=== PATIENT | female | born 1980 | race Caucasian/White ===

== ENCOUNTER 2017-02-08 08:36 | Emergency (ER) | payer MEDICAID, OTHER ==
[~2017-02-08] VITALS: Ht 172.7 cm; Wt 141.0 kg
[~2017-02-08 08:36] MED LIST: IBUP600T26 PO
[2017-02-08 08:37] VITALS: BP 143/79; PULSE 92; RESP 20; TEMP 98.1; O2SAT 97
[2017-02-08 09:03] VITALS: BP 145/83; PULSE 89; RESP 16; TEMP 98.1; O2SAT 95
[2017-02-08] MEDS ORDERED: SODIUM CHLOR 0.9% 1000 ML INJ 1,000 ML IV ONE ×2 (09:04→14:15)
[2017-02-08] MEDS ORDERED: METOCLOPRAMIDE HCL 10 MG/2 ML VIAL IVP ONE (09:15)
[2017-02-08] MEDS ORDERED: SODIUM CHLORIDE 0.9% FLUSH 10 ML FLUSH IVF PRN (09:15)
[2017-02-08] MEDS ORDERED: diphenhydrAMINE HCL 50 MG/ML VIAL IVP ONE (09:15)
[2017-02-08] MEDS ORDERED: DIAZEPAM 5 MG TAB PO ONE (09:15)
[2017-02-08] MEDS ORDERED: DEXAMETHASONE SOD PHOS 20 MG/5 ML VIAL IV PUSH ONE (09:15)
[2017-02-08 09:33] LABS: AUTOMATED NEUTROPHIL # 5.3 TH/MM3 (1.8-7.7); BASOPHIL % 0.6 % (0.0-2.0); EOSINOPHIL # 0.2 TH/MM3 (0-0.4); HEMATOCRIT 34.3 % (35.0-46.0); LYMPHOCYTE # 2.3 TH/MM3 (1.0-4.8); MEAN CELL VOLUME 70.9 FL (80.0-100.0); MEAN CORPUSCULAR HGB CONC 32.4 % (32.0-36.0); MONO % 6.1 % (0.0-8.0); NEUT % 63.3 % (16.0-70.0); PLATELET COUNT 377 TH/MM3 (150-450); RED BLOOD COUNT 4.84 MIL/MM3 (4.00-5.30); RED CELL DISTRIBUTION WIDTH 16.2 % (11.6-17.2); WHITE BLOOD COUNT 8.3 TH/MM3 (4.0-11.0)
[2017-02-08 09:35] LABS: HEMO FLAGS AUTO DIFF
[2017-02-08 09:41] LABS: APTT (PATIENT) 29.2 SEC (24.3-30.1); PROTHROMBIN TIME - PATIENT 10.9 SEC (9.8-11.6)
[2017-02-08 09:49] LABS: ANION GAP 6 MEQ/L (5-15); AST (GOT) 54 U/L (15-37); BICARBONATE 26.7 MEQ/L (21.0-32.0); BLOOD UREA NITROGEN 16 MG/DL (7-18); CHLORIDE 103 MEQ/L (98-107); GLOMERULAR FILTRATION RATE 78 ML/MIN (>89); POTASSIUM 4.5 MEQ/L (3.5-5.1); SODIUM (NA) 136 MEQ/L (136-145)
[2017-02-08 09:52] LABS: ALKALINE PHOSPHATASE 124 U/L (45-117); ALT (GPT) 45 U/L (10-53); TOTAL BILIRUBIN ADULT 0.3 MG/DL (0.2-1.0)
[2017-02-08 10:09] LABS: OVALOCYTES 1+ (NORMAL); SCAN/DIFF AUTO DIFF CONFIRMED
--- NOTE | 2017-02-08 11:01 | RADRPT ---
EXAM DATE/TIME: 02/08/2017 10:55 [facility] COMPARISON: No previous studies available for comparison. INDICATIONS : Cephalgia. RADIATION DOSE: 36.58 CTDIvol (mGy) MEDICAL HISTORY : None SURGICAL HISTORY : Tubal ligation. ENCOUNTER: Initial ACUITY: 2 weeks PAIN SCALE: 5/10 LOCATION: cranial TECHNIQUE: Multiple contiguous axial images were obtained of the head. Using automated exposure control and adj ustment of the mA and/or kV according to patient size, radiation dose was kept as low as reasonably a chievable to obtain optimal diagnostic quality images. FINDINGS: CEREBRUM: The ventricles are normal for age. No evidence of midline shift, mass lesion, hemorrhage or acute in farction. No extra-axial fluid collections are seen. POSTERIOR FOSSA: The cerebellum and brainstem are intact. The 4th ventricle is midline. The cerebellopontine angle i s unremarkable. EXTRACRANIAL: The visualized portion of the orbits is intact. SKULL: The calvaria is intact. No evidence of skull fracture. CONCLUSION: Unremarkable noncontrast CT. Darin Tapia MD on February 08, 2017 at 10:59 Board Certified Radiologist. This report was verified electronically.
[2017-02-08] MEDS ORDERED: KETOROLAC TROMETHAMINE 30 MG/ML (IVP) VIAL IV PUSH ONE (11:30)
[2017-02-08] MEDS: MAGNESIUM SULFATE 1 GM PREMIX 100 ML IV SCH ×2 (11:32→12:32)
[2017-02-08 13:32] VITALS: BP 123/65; PULSE 82; RESP 19; O2SAT 96
--- NOTE | 2017-02-08 14:28 | PD ---
HPI Chief Complaint: Headache Time Seen by Provider: 08:55 Travel History International Travel<30 days: No Contact w/Intl Traveler<30days: No Traveled to known affect area: No History of Present Illness HPI Patient is a 36-year-old female who presents to emergency room with complaints of headaches and neck pain. Patient reports that she has had a headache for the past few days. Patient reports that her headache came on abruptly a few days ago is posterior nature, reports that they, her headache radiating down to her neck. Patient reports that she feels nauseous with her symptoms. Patient did try taking ibuprofen with no relief of symptoms. Patient reports no vision changes, denies any trauma to the head or neck. She reports no fevers or chills , denies any recent surgeries or seizures. COUNT INCLUDES THE [facility] Past Medical History Diabetes: Yes (GESTATIONAL) Diminished Hearing: No Headaches: Yes Immunizations Current: No Tetanus Vaccination: > 5 Years Influenza Vaccination: No ?: Not LMP: 01/09/17 : 5 Para: 3 Miscarriage: 1 : 1 Tubal Ligation: Yes Past Surgical History Abdominal Surgery: Yes (Brenda) Section: Yes (X 2) Cholecystectomy: Yes Gynecologic Surgery: Yes () Social History Alcohol Use: No Tobacco Use: No Substance Use: No Allergies-Medications (Allergen,Severity, Reaction): Coded Allergies: No Known Allergies (Verified , 07/24/16) Reported Meds & Prescriptions Reported Meds & Active Scripts Active No Active Prescriptions or Reported Medications Review of Systems General / Constitutional: No: Fever Eyes: No: Visual changes HENT: Positive: Headaches, Neck Pain, No: Neck Stiffness Cardiovascular: No: Chest Pain or Discomfort Respiratory: No: Shortness of Breath Gastrointestinal: Positive: Nausea, No: Abdominal Pain Genitourinary: No: Dysuria Musculoskeletal: No: Pain Skin: No Rash Neurologic: No: Weakness Psychiatric: No: Depression Endocrine: No: Polydipsia Hematologic/Lymphatic: No: Easy Bruising Physical Exam Narrative GENERAL: nad, nontoxic SKIN: Focused skin assessment warm/dry. HEAD: Atraumatic. Normocephalic. EYES: Pupils equal and round. No scleral icterus. No injection or drainage. ENT: No nasal bleeding or discharge. Mucous membranes pink and moist. NECK: Trachea midline. No JVD. CARDIOVASCULAR: Regular rate and rhythm. No murmur appreciated. RESPIRATORY: No accessory muscle use. Clear to auscultation. Breath sounds equal bilaterally. GASTROINTESTINAL: Abdomen soft, non-tender, nondistended. Hepatic and splenic margins not palpable. MUSCULOSKELETAL: No obvious deformities. No clubbing. No cyanosis. No edema. NEUROLOGICAL: Awake and alert. No obvious cranial nerve deficits. Motor grossly within normal limits. Normal speech. PSYCHIATRIC: Appropriate mood and affect; insight and judgment normal. Data Data Last Documented VS Vital Signs Date Time Temp Pulse Resp B/P Pulse Ox O2 Delivery O2 Flow Rate FiO2 02/08/17 13:32 82 19 123/65 96 02/08/17 09:03 98.1 02/08/17 08:37 Room Air Orders Complete Blood Count With Diff (02/08/17 09:04) Comprehensive Metabolic Panel (02/08/17 09:04) Prothrombin Time / Inr (Pt) (02/08/17 09:04) Act Partial Throm Time (Ptt) (02/08/17 09:04) Ct Brain W/O Iv Contrast(Rout) (02/08/17 09:04) Ecg Monitoring (02/08/17 09:04) Iv Access Insert/Monitor (02/08/17 09:04) Oximetry (02/08/17 09:04) Sodium Chloride 0.9% Flush (Ns Flush) (02/08/17 09:15) Diphenhydramine Inj (Benadryl Inj) (02/08/17 09:15) Metoclopramide Inj (Reglan Inj) (02/08/17 09:15) Sodium Chlor 0.9% 1000 Ml Inj (Ns 1000 M (02/08/17 09:04) Diazepam (Valium) (02/08/17 09:15) Dexamethasone Inj (Decadron Inj) (02/08/17 09:15) Ketorolac Inj (Toradol Inj) (02/08/17 11:30) Magnesium Sulfate 1 Gm Premix (Magnesium (02/08/17 11:30) Cta Neck W Iv Contrast W 3d (02/08/17 ) Cta Brain W Iv Contrast W 3d (02/08/17 ) Sodium Chlor 0.9% 1000 Ml Inj (Ns 1000 M (02/08/17 14:15) Iohexol 350 Inj (Omnipaque 350 Inj) (02/08/17 14:53) Labs Laboratory Tests Test 02/08/17 09:10 White Blood Count 8.3 TH/MM3 Red Blood Count 4.84 MIL/MM3 Hemoglobin 11.1 GM/DL Hematocrit 34.3 % Mean Corpuscular Volume 70.9 FL Mean Corpuscular Hemoglobin 23.0 PG Mean Corpuscular Hemoglobin 32.4 % Concent Red Cell Distribution Width 16.2 % Platelet Count 377 TH/MM3 Mean Platelet Volume 7.6 FL Neutrophils (%) (Auto) 63.3 % Lymphocytes (%) (Auto) 27.0 % Monocytes (%) (Auto) 6.1 % Eosinophils (%) (Auto) 3.0 % Basophils (%) (Auto) 0.6 % Neutrophils # (Auto) 5.3 TH/MM3 Lymphocytes # (Auto) 2.3 TH/MM3 Monocytes # (Auto) 0.5 TH/MM3 Eosinophils # (Auto) 0.2 TH/MM3 Basophils # (Auto) 0.0 TH/MM3 CBC Comment AUTO DIFF Differential Comment AUTO DIFF CONFIRMED Ovalocytes 1+ Prothrombin Time 10.9 SEC Prothromb Time International 1.0 RATIO Ratio Activated Partial 29.2 SEC Thromboplast Time Sodium Level 136 MEQ/L Potassium Level 4.5 MEQ/L Chloride Level 103 MEQ/L Carbon Dioxide Level 26.7 MEQ/L Anion Gap 6 MEQ/L Blood Urea Nitrogen 16 MG/DL Creatinine 0.83 MG/DL Estimat Glomerular Filtration 78 ML/MIN Rate Random Glucose 143 MG/DL Calcium Level 8.5 MG/DL Total Bilirubin 0.3 MG/DL Aspartate Amino Transf 54 U/L (AST/SGOT) Alanine Aminotransferase 45 U/L (ALT/SGPT) Alkaline Phosphatase 124 U/L Total Protein 7.9 GM/DL Albumin 3.3 GM/DL [facility] Medical Decision Making Medical Screen Exam Complete: Yes Emergency Medical Condition: Yes Interpretation(s) Vital Signs Date Time Temp Pulse Resp B/P Pulse Ox O2 Delivery O2 Flow Rate FiO2 02/08/17 13:32 82 19 123/65 96 02/08/17 12:32 16 02/08/17 09:03 98.1 89 16 145/83 95 02/08/17 08:52 96 02/08/17 08:37 98.1 92 20 143/79 97 Room Air Differential Diagnosis cephalgia, intracranial hemorrhage, electrolyte abnormality Narrative Course Patient is a 36-year-old female who presents to emergency room with c/o of posterior headache. Patient reports that headache has been ongoing for the past few days, reports that symptoms have been getting progressively worse since yesterday. Patient denies thunderclap headache, reports headache similar to her previous episode. Patient overall nontoxic on evaluation. Labs as well as CT of the head ordered. Patient was given IV fluids, Toradol, dexamethasone for headache. Patient reevaluated, patient reports that she is not feeling any better at this time. Plan to medicate patient. Patient reevaluated, patient reports that she no longer has any neck pain, reports that her headache has gotten worse while in the ER. CTA of head/neck ordered to evaluate for aneurysm Patient reevaluated, patient reports that she is feeling better. Reports near relief of symptoms of headache and 100% relief of neck pain. Laboratory Tests Test 02/08/17 09:10 White Blood Count 8.3 TH/MM3 (4.0-11.0) Red Blood Count 4.84 MIL/MM3 (4.00-5.30) Hemoglobin 11.1 GM/DL (11.6-15.3) Hematocrit 34.3 % (35.0-46.0) Mean Corpuscular Volume 70.9 FL (80.0-100.0) Mean Corpuscular Hemoglobin 23.0 PG (27.0-34.0) Mean Corpuscular Hemoglobin 32.4 % Concent (32.0-36.0) Red Cell Distribution Width 16.2 % (11.6-17.2) Platelet Count 377 TH/MM3 (150-450) Mean Platelet Volume 7.6 FL (7.0-11.0) Neutrophils (%) (Auto) 63.3 % (16.0-70.0) Lymphocytes (%) (Auto) 27.0 % (9.0-44.0) Monocytes (%) (Auto) 6.1 % (0.0-8.0) Eosinophils (%) (Auto) 3.0 % (0.0-4.0) Basophils (%) (Auto) 0.6 % (0.0-2.0) Neutrophils # (Auto) 5.3 TH/MM3 (1.8-7.7) Lymphocytes # (Auto) 2.3 TH/MM3 (1.0-4.8) Monocytes # (Auto) 0.5 TH/MM3 (0-0.9) Eosinophils # (Auto) 0.2 TH/MM3 (0-0.4) Basophils # (Auto) 0.0 TH/MM3 (0-0.2) CBC Comment AUTO DIFF Differential Comment AUTO DIFF CONFIRMED Ovalocytes 1+ (NORMAL) Prothrombin Time 10.9 SEC (9.8-11.6) Prothromb Time International 1.0 RATIO Ratio Activated Partial 29.2 SEC Thromboplast Time (24.3-30.1) Sodium Level 136 MEQ/L (136-145) Potassium Level 4.5 MEQ/L (3.5-5.1) Chloride Level 103 MEQ/L (98-107) Carbon Dioxide Level 26.7 MEQ/L (21.0-32.0) Anion Gap 6 MEQ/L (5-15) Blood Urea Nitrogen 16 MG/DL (7-18) Creatinine 0.83 MG/DL (0.50-1.00) Estimat Glomerular Filtration 78 ML/MIN (>89) Rate Random Glucose 143 MG/DL (74-106) Calcium Level 8.5 MG/DL (8.5-10.1) Total Bilirubin 0.3 MG/DL (0.2-1.0) Aspartate Amino Transf 54 U/L (15-37) (AST/SGOT) Alanine Aminotransferase 45 U/L (10-53) (ALT/SGPT) Alkaline Phosphatase 124 U/L (45-117) Total Protein 7.9 GM/DL (6.4-8.2) Albumin 3.3 GM/DL (3.4-5.0) Last Impressions Head CT 02/08/17903 Signed Impressions: Service Date/Time: Wednesday, February 08, 2017 10:55 - CONCLUSION: Unremarkable noncontrast CT. Darin Tapia MD patient re-evaluated, patient not feeling any better at this time, will image to evaluate for aneurysms Last Impressions Head CT 02/08/17903 Signed Impressions: Service Date/Time: Wednesday, February 08, 2017 10:55 - CONCLUSION: Unremarkable noncontrast CT. Darin Tapia MD Neck CTA 02/08/17 0000 Signed Impressions: Service Date/Time: Wednesday, February 08, 2017 14:27 - CONCLUSION: Normal examination for a patient of this age. Aristides Miller MD Head CTA 02/08/17 0000 Signed Impressions: Service Date/Time: Wednesday, February 08, 2017 14:27 - CONCLUSION: Normal examination for a patient of this age. Aristides Miller MD patient re-evaluated, patient reports complete resolutions of symptoms at this time. i reviewed all studies and labs with patient in detail. signs and symptoms of when to return to ER was reviewed with patient. she will follow up with neurologist as well as her pcp and will return to er as needed Critical Care Narrative Aggregate critical care time was 30 minutes. Time to perform other separately billable procedures was not included in the critical care time. My time did not include minutes spent treating any other patients simultaneously or on activities that did not directly contribute to the patient's treatment. The services I provided to this patient were to treat and/or prevent clinically significant deterioration that could result in: , deterioration, decompensation I provided critical care services requiring my management, as noted below: Chart data review, documentation time, medication orders and management, vital sign assessments/reviewing monitor data, ordering and reviewing lab tests, ordering and interpreting/reviewing x-rays and diagnostic studies, care of the patient and discussion of the patient with the admitting physicians. Diagnosis Primary Impression: Cephalgia Qualified Code: R51 - Nonintractable headache, unspecified chronicity pattern , unspecified headache type Referrals: Demarcus Franco MD Patient Instructions: General Instructions Additional Instructions: Please give a copy of patients lab work as well as studies at discharged Please up with your primary care doctor in 2-3 days Return to emergency room if symptoms worsen or progress Return to the emergency room as needed Please follow up with neurologist Scripts No Active Prescriptions or Reported Meds Disposition: 01 DISCHARGE HOME Condition: Stable Neha Zavala DO February 08, 2017 14:28
[2017-02-08] MEDS ORDERED: IOHEXOL 350 MG/ML 10 ML VIAL (for RAD DIAG) IV ONE (14:53)
--- NOTE | 2017-02-08 15:27 | RADRPT ---
EXAM DATE/TIME: 02/08/2017 14:27 [facility] COMPARISON: No previous studies available for comparison. INDICATIONS : Evaluate for occlusion. IV CONTRAST: 75 cc Omnipaque 350 (iohexol) IV ; Cumulative dose for multiple exams. RADIATION DOSE: 35.91 CTDIvol (mGy) ; Combined studies MEDICAL HISTORY : None SURGICAL HISTORY : None. ENCOUNTER: Initial ACUITY: 1 day PAIN SCALE: 0/10 LOCATION: cranial TECHNIQUE: Volumetric scanning was performed using a multi-row detector CT scanner. The data was post processed with a variety of visualization algorithms including full volume maximum intensity projection, multi -planar sliding thin slab reformation, curved planar reformation, and surface rendering techniques. Using automated exposure control and adjustment of the mA and/or kV according to patient size, radiat ion dose was kept as low as reasonably achievable to obtain optimal diagnostic quality images. FINDINGS: There is excellent visualization of the major intracranial arteries out to the second-order branch ve ssels. There is no evidence for aneurysm, vessel truncation or stenosis, and no evidence for vascula r malformation. CONCLUSION: Normal examination for a patient of this age. Aristides Miller MD on February 08, 2017 at 15:22 Board Certified Radiologist. This report was verified electronically.
--- NOTE | 2017-02-08 15:50 | RADRPT ---
EXAM DATE/TIME: 02/08/2017 14:27 [facility] COMPARISON: No previous studies available for comparison. INDICATIONS : Evaluate for occlusion. IV CONTRAST: 75 cc Omnipaque 350 (iohexol) IV ; Cumulative dose for multiple exams. RADIATION DOSE: 35.91 CTDIvol (mGy) ; Combined studies MEDICAL HISTORY : None SURGICAL HISTORY : None. ENCOUNTER: Initial ACUITY: 1 day PAIN SCALE: 5/10 LOCATION: Bilateral neck Elevated flow velocities and ICA/CCA ratios have been found to correlate with increased degrees of vessel stenosis, calculated as percentage of diameter relative to a normal segment of distal ICA/CCA. TECHNIQUE: Volumetric scanning was performed using a multirow detector CT scanner. The data was post processed with a variety of visualization algorithms including full-volume maximum intensity projection, multip lanar sliding thin-slab reformation, curved-planar reformation, and surface-rendering techniques. Us ing automated exposure control and adjustment of the mA and/or kV according to patient size, radiatio n dose was kept as low as reasonably achievable to obtain optimal diagnostic quality images. FINDINGS: AORTIC ARCH: There is a three-vessel origin of the great vessels from the aorta. No evidence of ostial narrowing. RIGHT CAROTID: The common carotid artery is intact. The carotid bulb has a normal configuration without ulceration o r narrowing. The internal carotid artery lumen is smooth without stenosis. The external carotid curt ry is intact. LEFT CAROTID: The common carotid artery is intact. The carotid bulb has a normal configuration without ulceration or narrowing. The internal carotid artery lumen is smooth without stenosis. The external carotid ar panchito is intact. VERTEBRALS: The vertebral arteries have a symmetric diameter. No stenotic lesions are seen. CONCLUSION: Normal examination for a patient of this age. Aristides Miller MD on February 08, 2017 at 15:47 Board Certified Radiologist. This report was verified electronically.
== END 2017-02-08 17:07 | disposition home or self-care (01) ==
LOC: NEPE 08:36
DX: R51 Headache (principal)
CPT/HCPCS: 70450; 70496; 70498; 80053; 85025; 85610; 85730; 96361; 96365; 96375; 99285; J1100; J1200; J1885; J2765; J3475; J7030; Q9967

== ENCOUNTER 2017-10-02 12:07 | Emergency (ER) | payer MEDICAID ==
[~2017-10-02] VITALS: Ht 172.7 cm; Wt 140.0 kg
[2017-10-02 12:08] VITALS: BP 168/97; PULSE 93; RESP 14; TEMP 97.6; O2SAT 97
[2017-10-02 14:06] LABS: AUTOMATED NEUTROPHIL # 6.9 TH/MM3 (1.8-7.7); BASOPHIL # 0.1 TH/MM3 (0-0.2); BASOPHIL % 0.6 % (0.0-2.0); EOSINOPHIL # 0.3 TH/MM3 (0-0.4); EOSINOPHIL % 2.8 % (0.0-4.0); HEMATOCRIT 28.2 % (35.0-46.0); HEMOGLOBIN 8.8 GM/DL (11.6-15.3); LYMPH % 23.9 % (9.0-44.0); LYMPHOCYTE # 2.5 TH/MM3 (1.0-4.8); MEAN CELL VOLUME 70.1 FL (80.0-100.0); MEAN CORPUSCULAR HEMOGLOBIN 21.9 PG (27.0-34.0); MEAN CORPUSCULAR HGB CONC 31.2 % (32.0-36.0); MEAN PLATELET VOLUME 7.3 FL (7.0-11.0); MONO % 6.1 % (0.0-8.0); MONOCYTE # 0.6 TH/MM3 (0-0.9); NEUT % 66.6 % (16.0-70.0); PLATELET COUNT 431 TH/MM3 (150-450); RED BLOOD COUNT 4.02 MIL/MM3 (4.00-5.30); RED CELL DISTRIBUTION WIDTH 16.1 % (11.6-17.2); WHITE BLOOD COUNT 10.3 TH/MM3 (4.0-11.0)
[2017-10-02 14:25] LABS: BACTERIA, URINE RARE /hpf; BILIRUBIN, URINE NEG (NEG); BLOOD, URINE LARGE (NEG); GLUCOSE,URINE NEG (NEG); KETONE, URINE NEG (NEG); MUCUS URINE FEW /lpf (OCC); NITRITE,URINE NEG (NEG); SQUAMOUS EPITHELIAL CELL URINE 2 /hpf (0-5); URINE COLOR LIGHT-RED (YELLW/STRAW); URINE LEUKOCYTE ESTERASE SMALL (NEG)
[2017-10-02 14:29] LABS: BICARBONATE 24.6 MEQ/L (21.0-32.0); CALCIUM 8.8 MG/DL (8.5-10.1); CREATININE 0.69 MG/DL (0.50-1.00)
--- NOTE | 2017-10-02 15:02 | PD ---
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 She reports using a large box of pads every day or every couple days. 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 She denies abnormal discharge. No modifying factor. No significant abdominopelvic pain. PFSH Past Medical History Diabetes: Yes (GESTATIONAL) Patient Takes Glucophage: No Diminished Hearing: No Headaches: Yes Immunizations Current: No Tetanus Vaccination: Unknown Influenza Vaccination: No ?: Not LMP: CURRENT : 5 Para: 3 Miscarriage: 1 : 1 Tubal Ligation: Yes Past Surgical History Abdominal Surgery: Yes (Brenda) Section: Yes (X 2) Cholecystectomy: Yes Gynecologic Surgery: Yes () Social History Alcohol Use: No Tobacco Use: No Substance Use: No Allergies-Medications (Allergen,Severity, Reaction): Coded Allergies: No Known Allergies (Verified Adverse Reaction, Unknown, 10/02/17) Reported Meds & Prescriptions Reported Meds & Active Scripts Active Natazia (Estradiol Valerate/Estradiol Jennifer-Dienogest) 3-2-1(28) Tab 1 Tab PO DAILY Review of Systems Except as stated in HPI: all other systems reviewed are Neg General / Constitutional: No: Fever Physical Exam Narrative GENERAL: 37-year-old female pleasant well-nourished well-developed no acute distress SKIN: Focused skin assessment warm/dry. HEAD: Atraumatic. Normocephalic. EYES: Pupils equal and round. No scleral icterus. No injection or drainage. ENT: No nasal bleeding or discharge. Mucous membranes pink and moist. NECK: Trachea midline. No JVD. CARDIOVASCULAR: Regular rate and rhythm. No murmur appreciated. RESPIRATORY: No accessory muscle use. Clear to auscultation. Breath sounds equal bilaterally. GASTROINTESTINAL: Abdomen soft, non-tender, nondistended. Hepatic and splenic margins not palpable. MUSCULOSKELETAL: No obvious deformities. No clubbing. No cyanosis. No edema. NEUROLOGICAL: Awake and alert. No obvious cranial nerve deficits. Motor grossly within normal limits. Normal speech. PSYCHIATRIC: Appropriate mood and affect; insight and judgment normal. Data Data Last Documented VS Vital Signs Date Time Temp Pulse Resp B/P (MAP) Pulse Ox O2 Delivery O2 Flow Rate FiO2 10/02/17 16:08 10/02/17 12:34 19 10/02/17 12:08 97.6 93 97 Vital Signs Date Time Temp Pulse Resp B/P (MAP) Pulse Ox O2 Delivery O2 Flow Rate FiO2 10/02/17 16:08 10/02/17 12:34 19 10/02/17 12:08 97.6 93 14 168/97 (120) 97 Orders Orders Complete Blood Count With Diff (10/02/17 12:58) Basic Metabolic Panel (Bmp) (10/02/17 12:58) Urinalysis - C+S If Indicated (10/02/17 12:58) Ed Urine Pregnancytest Poc (10/02/17 12:58) Ed Discharge Order (10/02/17 15:02) Labs Laboratory Tests Test 10/02/17 13:54 White Blood Count 10.3 TH/MM3 Red Blood Count 4.02 MIL/MM3 Hemoglobin 8.8 GM/DL Hematocrit 28.2 % Mean Corpuscular Volume 70.1 FL Mean Corpuscular Hemoglobin 21.9 PG Mean Corpuscular Hemoglobin Concent 31.2 % Red Cell Distribution Width 16.1 % Platelet Count 431 TH/MM3 Mean Platelet Volume 7.3 FL Neutrophils (%) (Auto) 66.6 % Lymphocytes (%) (Auto) 23.9 % Monocytes (%) (Auto) 6.1 % Eosinophils (%) (Auto) 2.8 % Basophils (%) (Auto) 0.6 % Neutrophils # (Auto) 6.9 TH/MM3 Lymphocytes # (Auto) 2.5 TH/MM3 Monocytes # (Auto) 0.6 TH/MM3 Eosinophils # (Auto) 0.3 TH/MM3 Basophils # (Auto) 0.1 TH/MM3 CBC Comment DIFF FINAL Differential Comment Urine Color LIGHT-RED Urine Turbidity SLIGHTY CLOUDY Urine pH 6.0 Urine Specific [place] 1.019 Urine Protein 30 mg/dL Urine Glucose (UA) NEG mg/dL Urine Ketones NEG mg/dL Urine Occult Blood LARGE Urine Nitrite NEG Urine Bilirubin NEG Urine Urobilinogen LESS THAN 2.0 MG/DL Urine Leukocyte Esterase SMALL Urine RBC /hpf Urine WBC 3 /hpf Urine Squamous Epithelial Cells 2 /hpf Urine Bacteria RARE /hpf Urine Mucus FEW /lpf Microscopic Urinalysis Comment CULT NOT INDICATED Blood Urea Nitrogen 11 MG/DL Creatinine 0.69 MG/DL Random Glucose 139 MG/DL Calcium Level 8.8 MG/DL Sodium Level 136 MEQ/L Potassium Level 4.0 MEQ/L Chloride Level 102 MEQ/L Carbon Dioxide Level 24.6 MEQ/L Anion Gap 9 MEQ/L Estimat Glomerular Filtration Rate 96 ML/MIN MDM Medical Decision Making Medical Screen Exam Complete: Yes Emergency Medical Condition: Yes Medical Record Reviewed: Yes Differential Diagnosis Anemia, fibroid, dysfunctional uterine bleeding Narrative Course CBC & BMP Diagram 10/02/17 13:54 Calcium Level 8.8 Urinalysis shows no UTI Cripps as below Necessity of follow-up with obstetrics/gynecology endorsed and the patient verbalized understanding Diagnosis Primary Impression: Dysfunctional uterine bleeding Additional Impression: Anemia Qualified Codes: D64.9 - Anemia, unspecified Referrals: Michael Levine MD call for appointment Med/Other Pt SpecificInfo: No Change to Meds Scripts Estradiol Valerate/Estradiol Jennifer-Dienogest (Natazia) 3-2-1(28) Tab 1 TAB PO DAILY, #28 TAB Prov: Leon Cantu MD 10/02/17 Disposition: 01 DISCHARGE HOME Condition: Stable Leon Cantu MD Oct 02, 2017 15:02
[2017-10-02] MEDS ORDERED: NATATAB2 PO (15:44)
== END 2017-10-02 15:45 | disposition home or self-care (01) ==
LOC: NEPC 12:07
DX: N93.8 Other specified abnormal uterine and vaginal bleeding (principal); D64.9 Anemia, unspecified
CPT/HCPCS: 80048; 81001; 84703; 85025; 99283

== ENCOUNTER 2018-02-02 20:09 | Emergency (ER) | payer OTHER ==
[~2018-02-02] VITALS: Ht 170.2 cm; Wt 113.0 kg
[~2018-02-02 20:09] MED LIST changes: -IBUP600T26 PO; +NATATAB2 PO
[2018-02-02 20:22] VITALS: BP 140/80; PULSE 97; RESP 20; TEMP 98.7; O2SAT 98
[2018-02-02] MEDS ORDERED: KETOROLAC TROMETHAMINE 30 MG/ML (IVP) VIAL IV PUSH ONE (20:45)
[2018-02-02] MEDS ORDERED: TETANUS/DIPHTHERIA TOXOID ADULT 0.5 ML VIAL IM ONE (20:45)
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
[2018-02-02 22:15] LABS: AUTOMATED NEUTROPHIL # 5.9 TH/MM3 (1.8-7.7); BASOPHIL % 0.6 % (0.0-2.0); EOSINOPHIL # 0.2 TH/MM3 (0-0.4); HEMATOCRIT 25.9 % (35.0-46.0); HEMOGLOBIN 7.5 GM/DL (11.6-15.3); LYMPH % 17.8 % (9.0-44.0); LYMPHOCYTE # 1.4 TH/MM3 (1.0-4.8); MEAN CELL VOLUME 58.9 FL (80.0-100.0); MEAN CORPUSCULAR HEMOGLOBIN 17.1 PG (27.0-34.0); MEAN PLATELET VOLUME 8.8 FL (7.0-11.0); MONO % 7.1 % (0.0-8.0); MONOCYTE # 0.6 TH/MM3 (0-0.9); NEUT % 72.5 % (16.0-70.0); PLATELET COUNT 373 TH/MM3 (150-450); RED CELL DISTRIBUTION WIDTH 20.1 % (11.6-17.2); WHITE BLOOD COUNT 8.1 TH/MM3 (4.0-11.0)
[2018-02-02] MEDS ORDERED: DICL75TA PO (22:19)
[2018-02-02 22:22] LABS: MEAN CORPUSCULAR HGB CONC 29.1 % (32.0-36.0)
[2018-02-02 22:30] LABS: ALBUMIN 3.2 GM/DL (3.4-5.0); AST (GOT) 184 U/L (15-37); BICARBONATE 22.6 MEQ/L (21.0-32.0); BLOOD UREA NITROGEN 9 MG/DL (7-18); CALCIUM 8.8 MG/DL (8.5-10.1); CHLORIDE 105 MEQ/L (98-107); CREATININE 0.76 MG/DL (0.50-1.00); GLOMERULAR FILTRATION RATE 86 ML/MIN (>89); GLUCOSE,RANDOM 308 MG/DL (74-106); SODIUM (NA) 137 MEQ/L (136-145)
[2018-02-02] MEDS ORDERED: ACETAMINOPHEN/HYDROcodone 325 MG/5 MG TAB PO ONE (22:30)
[2018-02-02 22:31] LABS: ALT (GPT) 56 U/L (10-53)
[2018-02-02 22:33] LABS: ALKALINE PHOSPHATASE 142 U/L (45-117); TOTAL BILIRUBIN ADULT 0.3 MG/DL (0.2-1.0); TOTAL PROTEIN 7.6 GM/DL (6.4-8.2)
== END 2018-02-02 22:51 | disposition home or self-care (01) ==
LOC: NEPD 20:09
DX: S49.91XA Unspecified injury of right shoulder and upper arm, initial encounter (principal); S80.01XA Contusion of right knee, initial encounter; G89.29 Other chronic pain; R10.9 Unspecified abdominal pain; V29.9XXA Motorcycle rider (driver) (passenger) injured in unspecified traffic accident, initial encounter; Y92.481 Parking lot as the place of occurrence of the external cause; Z23 Encounter for immunization
CPT/HCPCS: 73030; 73560; 80053; 85025; 90471; 90714; 99284; J1885